=== PATIENT | male | born 1960 | race Caucasian/White ===

== ENCOUNTER 2024-09-16 17:45 | Emergency (ER) | payer MEDICARE, OTHER ==
[~2024-09-16 17:45] MED LIST: Iopamidol 370 76% 100 ML VIAL ONE
[2024-09-16] MEDS ORDERED: Acetaminophen 500 MG TAB ONE (18:40)
[2024-09-16] MEDS ORDERED: Aspirin Chewable 81 MG TAB ONE (18:41)
[2024-09-16 18:43] LABS: #Basophils 0.1 thou/uL (0.0-0.2); #Eosinophils 0.2 thou/uL (0.0-0.7); #Lymphocytes 2.7 thou/uL (1.20-3.40); #Monocytes 0.6 thou/uL (0.11-0.59); #Neutrophils 2.7 thou/uL (1.40-6.50); %Eosinophils 3.3 % (0.0-10.0); %Lymphocytes 41.9 % (21.0-51.0); %Monocytes 9.8 % (0.0-10.0); %Neutrophils 42.9 % (42.0-75.0); Hematocrit 44.8 % (42.0-52.0); Hemoglobin 14.7 g/dL (14.0-18.0); Mean Corpuscular HGB CONC 32.7 g/dL (32.0-36.0); Mean Corpuscular Hemoglobin 30.1 pg (27.0-31.0); Mean Platelet Volume 10.4 fL (7.4-10.4); Platelet Count 153 10x3/uL (130-400); RBC Distribution Width 12.4 % (11.5-14.5); Red Blood Cell (RBC) Count 4.86 mill/uL (4.70-6.10); White Blood Cell (WBC) Count 6.4 10x3/uL (4.8-10.8)
[2024-09-16 18:51] LABS: Prothrombin Time 13.6 sec (12.0-14.7)
[2024-09-16 18:52] LABS: PTT 29.4 sec (22.9-36.1)
[2024-09-16 18:59] LABS: ALT (SGPT) 23 U/L (8-55); AST (SGOT) 26 U/L (5-34); Albumin 4.1 g/dL (3.4-4.8); Alkaline Phosphatase 59 U/L (40-110); Anion Gap 13 mmol/L (10-20); BUN (Urea Nitrogen) 12 mg/dL (8.4-25.7); Bilirubin, Total 0.8 mg/dL (0.2-1.2); Calc. Creatinine Clearance 0 mL/min (70-130); Calcium 9.1 mg/dL (7.8-10.44); Carbon Dioxide 23 mmol/L (23-31); Chloride 107 mmol/L (98-107); Estimated GFR 68; Globulin 3.8 g/dL (2.4-3.5); Glucose 71 mg/dL (80-115); Potassium 3.9 mmol/L (3.5-5.1); Protein, Total 7.9 g/dL (5.8-8.1); Sodium 139 mmol/L (136-145)
[2024-09-16 19:00] LABS: Troponin I 0.014 ng/mL (< 0.028)
[2024-09-16] MEDS ORDERED: Nitroglycerin 0.4 MG TAB 1 EACH ONE (19:19)
[2024-09-16] MEDS ORDERED: Morphine 4 MG/ML VIAL ONE (19:31)
[2024-09-16 21:22] LABS: Troponin I Less than 0.010 ng/mL (< 0.028)
== END 2024-09-16 21:44 | disposition home or self-care (01) ==
LOC: MADERS 17:45
DX: I71.20 Thoracic aortic aneurysm, without rupture, unspecified (principal); I10 Essential (primary) hypertension; I48.91 Unspecified atrial fibrillation; Z79.01 Long term (current) use of anticoagulants; Z79.899 Other long term (current) drug therapy
CPT/HCPCS: 36415; 71275; 74174; 80053; 84484; 85025; 85610; 85730; 93005; 94760; 96374; J2272; Q9967